=== PATIENT | female | born 1995 | race Caucasian/White ===

== ENCOUNTER 2022-09-20 11:35 | Emergency (ER) | payer OTHER ==
[~2022-09-20] VITALS: Ht 154.9 cm; Wt 44.3 kg
[2022-09-20] MEDS ORDERED: SODIUM CHLORIDE 0.9% 1,000 ML IV ONE (12:00)
[2022-09-20] MEDS ORDERED: 0.9% SODIUM CHLORIDE 10 ML SYRINGE IVP PRN (12:00)
[2022-09-20] MEDS ORDERED: ACETAMINOPHEN 1000 MG/ISO-OSM 100 ML IV ONE (12:00)
[2022-09-20] MEDS ORDERED: KETOROLAC TROMETHAMINE 30 MG/ML VIAL IVP ONE (12:00)
[2022-09-20] MEDS ORDERED: DEXAMETHASONE SOD PHOS 4 MG/ML VIAL IVP ONE (12:00)
[2022-09-20 12:33] LABS: COVID AG,FIA SOURCE NASOPHARYNGEAL
[2022-09-20] MEDS ORDERED: IOHEXOL 350 MG/ML 100 ML VIAL ONE (12:33)
[2022-09-20 12:49] LABS: ANION GAP 5 mmol/L (8-16); CALCIUM, TOTAL 9.3 mg/dL (8.8-10.5); CARBON DIOXIDE 29 mmol/L (22-29); CHLORIDE 104 mmol/L (98-107); CREATININE 0.68 mg/dL (0.60-1.30); GLOMERULAR FILTR. RATE CALC > 60 mL/min (>60); GLUCOSE,RANDOM 101 mg/dL (70-110); POTASSIUM 3.5 mmol/L (3.5-5.1); SODIUM SERUM 138 mmol/L (136-145); UREA NITROGEN, BLOOD 7 mg/dL (7-18)
[2022-09-20 12:51] LABS: BASOPHILS % (AUTO) 0.3 % (0.0-2.0); EOSINOPHILS % (AUTO) 0.8 % (1.0-6.0); HEMATOCRIT 37.2 % (36-46); HEMOGLOBIN 12.4 g/dL (12.0-16.0); LYMPHOCYTES # (AUTO) 0.6 K/uL (1.0-4.8); LYMPHOCYTES % (AUTO) 4.6 % (22.0-44.0); MEAN CORPUSCULAR HEMOGLOBIN 31.7 pg (26.0-34.0); MEAN CORPUSCULAR HGB CONC 33.2 G/dL (31.0-37.0); MEAN CORPUSCULAR VOLUME 95 fL (80-100); MONOCYTES % (AUTO) 7.5 % (2.0-9.0); NEUTROPHILS # (AUTO) 11.7 K/uL (1.8-7.7); PLATELET COUNT (AUTO) 368 K/uL (150-450); RED CELL DISTRIBUTION WIDTH 14.5 % (11.5-14.5)
[2022-09-20 12:52] LABS: NEUTROPHILS % (AUTO) 86.8 % (40.0-70.0)
[2022-09-20 12:57] LABS: B-TYPE NATRIURETIC PEPTIDE 16 pg/mL (0-100)
[2022-09-20 12:58] LABS: LACTIC ACID 0.9 mmol/L (0.4-2.0)
[2022-09-20] MEDS ORDERED: SODIUM CHLORIDE 0.9% 500 ML IV ONE (13:00)
[2022-09-20 13:05] LABS: RAPID GROUP A STREP NEGATIVE (NEGATIVE)
[2022-09-20 13:10] LABS: INFLUENZA TYPE A NEGATIVE FOR TYPE A (NEGATIVE); INFLUENZA TYPE B NEGATIVE FOR TYPE B (NEGATIVE)
[2022-09-20 13:14] LABS: ALANINE AMINOTRANSFERASE 14 U/L (12-78); ALBUMIN 3.9 g/dL (3.4-5.0); ALKALINE PHOSPHATASE 84 U/L (46-116); ASPARTATE AMINOTRANSFERASE 12 U/L (15-37); BILIRUBIN,TOTAL 0.4 mg/dL (0.1-1.0); CREATINE KINASE, TOTAL ONLY 91 U/L (26-192); TOTAL PROTEIN, SERUM 8.2 g/dL (6.4-8.2)
[2022-09-20] MEDS ORDERED: AMPICILLIN SODIUM/SULBACTAM NA 3 GM in SODIUM CHLORIDE 0.9% 100 ML IV ONE (13:15)
[2022-09-20 13:25] LABS: PROTHROMBIN TIME 10.9 SEC (9.4-11.6)
[2022-09-20 13:33] LABS: APPEARANCE,URINE CLEAR (CLEAR); BILIRUBIN,URINE NEGATIVE (NEGATIVE); GLUCOSE, URINE (UA) NEGATIVE (NEGATIVE); KETONES,URINE TRACE mg/dL (NEGATIVE); LEUKOCYTE ESTERASE ,URINE NEGATIVE (NEGATIVE); NITRATE,URINE NEGATIVE (NEGATIVE); OCCULT BLOOD,URINE TRACE (NEGATIVE); PROTEIN,URINE NEGATIVE (NEGATIVE); SPECIFIC GRAVITIY, URINE 1.023 (1.003-1.030); UROBILINOGEN,URINE <=1.0 mg/dL (<=1.0)
[2022-09-20 13:34] LABS: HCG,QUANTITATIVE < 1 mIU/mL (0-6)
[2022-09-20 13:45] LABS: BACTERIA,URINE Rare /HPF (None Seen); RBC,URINE 0-2 /HPF (0-2); SQUAMOUS EPITHELIAL CELL,UR Few /LPF (None Seen); WBC,URINE 0-2 /HPF (0-5); YEAST,URINE None Seen /HPF (None Seen)
[2022-09-20 13:46] LABS: AMORPHOUS SEDIMENT,UR None Seen /LPF (None Seen); CALCIUM OXALATE CRYSTALS,UR None Seen /LPF (None Seen); CALCIUM PHOSPHATE CRYSTALS,UR None Seen /LPF (None Seen); COARSE GRANULAR CASTS,URINE None Seen /LPF (None Seen); FINE GRANULAR CASTS,URINE None Seen /LPF (None Seen); HYALINE CASTS, URINE None Seen /LPF (None Seen); MUCUS,URINE Rare LPF (None Seen); OTHER CASTS, URINE None Seen /LPF (None Seen); OTHER CRYSTALS,URINE None Seen /LPF (None Seen); RENAL EPITHELIAL CELLS,URINE None Seen /LPF (None Seen); STARCH,URINE None Seen /LPF (None Seen); TRANSITIONAL EPI CELLS,URINE None Seen /LPF (None Seen); TRIPLE PHOSPHATE CRYSTAL,UR None Seen /LPF (None Seen); URIC ACID CRYSTALS,URINE None Seen /LPF (None Seen)
[2022-09-20] MEDS ORDERED: ACETAMINOPHEN 500 MG TABLET PO ONE (15:30)
[2022-09-20 16:00] VITALS: BP 97/63
[2022-09-20] MEDS ORDERED: AMOX1TAB16 PO (16:02)
[2022-09-20] MEDS ORDERED: ACET-66 PO (16:02)
== END 2022-09-20 16:31 | disposition home or self-care (01) ==
LOC: EMS 11:37
DX: A41.9 Sepsis, unspecified organism (principal); J02.0 Streptococcal pharyngitis; Z20.822 Contact with and (suspected) exposure to COVID-19; J02.9 Acute pharyngitis, unspecified; R00.0 Tachycardia, unspecified
CPT/HCPCS: 99291; 96365; 70491; 71045; 96375; 96367; 87426; 80053; 81001; 82550; 83605; 83880; 84484; 84702; 85025; 85610; 87040; 87430; 87804; 36415; 93005; 84145; J1100; J1885; J0295; Q9967; J7030; J7050; J0131